=== PATIENT | female | born 1990 | race Caucasian/White ===

== ENCOUNTER 2024-01-10 14:44 | Emergency (ER) | payer OTHER ==
[~2024-01-10] VITALS: Ht 167.6 cm; Wt 90.7 kg
[2024-01-10 14:44] VITALS: BP 140/79; PULSE 118; RESP 20; TEMP 98.6; O2SAT 98
[2024-01-10 15:35] VITALS: BP 126/94; PULSE 87; RESP 16; TEMP 98.3; O2SAT 99
== END 2024-01-10 15:31 | disposition home or self-care (01) ==
LOC: MED 14:44
DX: F10.129 Alcohol abuse with intoxication, unspecified (principal); Y90.9 Presence of alcohol in blood, level not specified
CPT/HCPCS: 99283